=== PATIENT | male | born 1990 | race Caucasian/White ===

== ENCOUNTER 2018-11-16 04:22 | Emergency (ER) | payer BC, OTHER ==
[~2018-11-16] VITALS: Ht 170.2 cm; Wt 72.1 kg
[2018-11-16 04:25] VITALS: BP_SYST 142
--- NOTE | 2018-11-16 04:31 | NUR ---
Patient to ER bed 8 to gown for evaluation. Side rails up.
--- NOTE | 2018-11-16 04:35 | NUR ---
Pt C/O abdominal pain and sore throat x 3 days. Pt was prescribed Azithromycin and Tamiflu today by PCP and took medication with no relief. Pt denies any N/V/D, chest pain or shortness of breath. Will continue to monitor.
--- NOTE | 2018-11-16 04:45 | NUR ---
ER Dr. Burton at bedside examining patient.
[2018-11-16 04:47] LABS: BILIRUBIN,URINE NEGATIVE (NEGATIVE); BLOOD, URINE NEGATIVE (NEGATIVE); CLARITY/URINE CLEAR (CLEAR); COLOR,URINE YELLOW (YELLOW); GLUCOSE,URINE NEGATIVE (NEGATIVE); KETONES,URINE NEGATIVE (NEGATIVE); LEUKOCYTE ESTERASE ,URINE NEGATIVE (NEGATIVE); NITRITE, URINE NEGATIVE (NEGATIVE); PROTEIN URINE NEGATIVE (NEGATIVE)
[2018-11-16 04:55] LABS: BASOPHILS # (AUTO) 0.1 K/uL (0.0-0.2); BASOPHILS % (AUTO) 0.5 % (0.0-2.0); EOSINOPHILS % (AUTO) 0.4 % (0.0-4.0); HEMATOCRIT 43.6 % (36-54); HEMOGLOBIN 14.7 g/dL (14.0-18.0); LYMPHOCYTES % (AUTO) 16.9 % (20.5-51.5); MEAN CORPUSCULAR HEMOGLOBIN 29 pg (27-31); MEAN CORPUSCULAR HGB CONC 34 % (32-36); MEAN CORPUSCULAR VOLUME 84 fL (79.0-98.0); MONOCYTES # (AUTO) 1.2 K/uL (0.0-1.0); MONOCYTES % (AUTO) 9.7 % (1.7-9.3); NEUTROPHILS # (AUTO) 8.7 K/uL (1.8-7.7); NEUTROPHILS % (AUTO) 72.5 % (40.0-70.0); PLATELET COUNT (AUTO) 218 K/uL (130-430); RED BLOOD CELL COUNT(AUTO) 5.16 MIL/uL (4.2-6.2); RED CELL DISTRIBUTION WIDTH 12.8 % (9.0-15.0); WHITE BLOOD COUNT (AUTO) 12.1 K/uL (4.8-10.8)
[2018-11-16 05:10] LABS: CALCIUM 9.2 mg/dL (8.4-11.0); CREATININE 0.88 mg/dL (0.55-1.30); POTASSIUM 3.7 mmol/L (3.5-5.1)
[2018-11-16 05:15] LABS: ALBUMIN 4.1 g/dL (3.4-4.8); TOTAL BILIRUBIN 1.1 mg/dL (0.0-1.0)
--- NOTE | 2018-11-16 05:20 | NUR ---
Pt resting in bed, no acute distress noted at this time. Will continue to monitor.
--- NOTE | 2018-11-16 06:09 | NUR ---
Patient given written and verbal discharge instructions by DR STACK and verbalizes understanding. ER MD discussed with patient the results and treatment provided. Patient in stable condition. ID arm band removed. Rx of Augmentin 875mg given. Patient educated on pain management and to follow up with PMD. Pain Scale 3/10. Opportunity for questions provided and answered. Medication side effect fact sheet provided.
[2018-11-16 06:11] VITALS: BP_SYST 138
== END 2018-11-16 06:11 | disposition home or self-care (01) ==
LOC: SED 04:22
DX: J02.9 Acute pharyngitis, unspecified (principal)
CPT/HCPCS: 36415; 80053; 81003; 85025; 99283

== ENCOUNTER 2020-02-19 03:54 | Emergency (ER) | payer BC, OTHER ==
[~2020-02-19] VITALS: Ht 170.2 cm; Wt 70.8 kg
[2020-02-19 04:05] VITALS: BP_SYST 151
[2020-02-19 04:40] VITALS: BP_SYST 118
== END 2020-02-19 04:40 | disposition home or self-care (01) ==
LOC: SED 03:54
DX: E06.9 Thyroiditis, unspecified (principal); R07.0 Pain in throat
CPT/HCPCS: 99282

== ENCOUNTER 2020-06-06 20:29 | Emergency (ER) | payer OTHER, SELFPAY ==
[~2020-06-06] VITALS: Ht 170.2 cm; Wt 74.4 kg
[2020-06-06 20:35] VITALS: BP_SYST 149
[2020-06-06 21:10] VITALS: BP_SYST 149
== END 2020-06-06 21:10 | disposition home or self-care (01) ==
LOC: SED 20:29
DX: B34.9 Viral infection, unspecified (principal); E07.9 Disorder of thyroid, unspecified
CPT/HCPCS: 99281

== ENCOUNTER 2021-10-08 06:24 | Emergency (ER) | payer OTHER ==
[~2021-10-08] VITALS: Ht 170.2 cm; Wt 75.7 kg
[2021-10-08 06:30] VITALS: BP_SYST 118
[2021-10-08] MEDS ORDERED: IBUP-1971 PO (08:37)
[2021-10-08] MEDS ORDERED: PSEU30TA36 PO (08:37)
[2021-10-08] MEDS ORDERED: ACET-2634 PO (08:48)
[2021-10-08 09:00] VITALS: BP_SYST 134
== END 2021-10-08 09:01 | disposition home or self-care (01) ==
LOC: SED 06:24
DX: J20.9 Acute bronchitis, unspecified (principal)
CPT/HCPCS: 36415; 70360-TC; 71045; 86403; 87081; 99284